=== PATIENT | male | born 1955 | race Caucasian/White ===

== ENCOUNTER 2017-02-13 11:19 | Emergency (ER) | payer MEDICARE, OTHER ==
[~2017-02-13] VITALS: Ht 175.3 cm; Wt 75.0 kg
[2017-02-13] MEDS ORDERED: BECL8.7A6 INH (11:49)
[2017-02-13] MEDS ORDERED: ALBU0.63 NEB (11:49)
[2017-02-13] MEDS ORDERED: ALBUTEROL/IPRATROPIUM 2.5MG/0.5MG, 3 ML NPPB ONE (12:00)
[2017-02-13] MEDS ORDERED: ALBUTEROL/IPRATROPIUM 2.5MG/0.5MG, 3 ML ONE (12:19)
[2017-02-13 12:49] VITALS: BP 128/72
== END 2017-02-13 13:11 | disposition home or self-care (01) ==
LOC: ED 12:06
DX: J44.0 Chronic obstructive pulmonary disease with (acute) lower respiratory infection (principal); J20.8 Acute bronchitis due to other specified organisms; F17.210 Nicotine dependence, cigarettes, uncomplicated
CPT/HCPCS: 71020; 94640; 99284; J7512; J7620

== ENCOUNTER 2020-07-19 08:00 | Outpatient (CLI) | payer MEDICARE ==
[~2020-07-19 08:00] MED LIST: ALBU0.63 NEB; BECL8.7A6 INH
[2020-07-19] MEDS ORDERED: TIOT18CA INH (10:16)
[2020-07-19] MEDS ORDERED: Albuterol INH (10:16)
[2020-07-19] MEDS ORDERED: SALM50DI2 INH (10:16)
[2020-07-19] MEDS ORDERED: ACET-1600 PO (10:16)
[2020-07-19] MEDS ORDERED: ASPI81TA45 PO (10:16)
[2020-07-19] MEDS ORDERED: CAFFEINE PO (10:16)
== END 2020-07-19 23:59 | disposition home or self-care (01) ==
LOC: STAR 08:00
PROVIDERS: ATTEND Urology
DX: Z01.812 Encounter for preprocedural laboratory examination (principal); N32.89 Other specified disorders of bladder; I25.2 Old myocardial infarction; Z20.822 Contact with and (suspected) exposure to COVID-19
CPT/HCPCS: 36415; 80053; 81003; 85025; 85610; 85730; 87086; 93005; U0003; U0005